=== PATIENT | female | born 1975 | race Hispanic/Latino ===

== ENCOUNTER → 2017-06-30 | Outpatient (CLI) | payer OTHER | END | disposition home or self-care (01) | LOC: RAH 08:49 | PROVIDERS: ATTEND Nurse Practitioner Adult Health | DX: Z12.31 Encounter for screening mammogram for malignant neoplasm of breast (principal); E04.1 Nontoxic single thyroid nodule | CPT/HCPCS: 76536; 77067 ==

== ENCOUNTER → 2021-08-11 | Outpatient (CLI) | payer OTHER ==
[2021-08-11 11:17] LABS: BASOPHILS % (AUTO) 0.7 % (0.0-5.0); EOSINOPHILS % (AUTO) 1.2 % (0.0-8.0); HEMATOCRIT 41.4 % (36-48); LYMPHOCYTES % (AUTO) 19.6 % (21.0-51.0); MEAN CORPUSCULAR HEMOGLOBIN 25.8 pg (27.0-33.0); MEAN CORPUSCULAR HGB CONC 31.4 g/dL (32.0-36.0); MEAN CORPUSCULAR VOLUME 82.3 fL (79-99); MONOCYTES % (AUTO) 7.8 % (3.0-13.0); NEUTROPHILS % (AUTO) 70.4 % (40.0-77.0); PLATELET COUNT (AUTO) 232 K/uL (130-400); RED BLOOD CELL COUNT(AUTO) 5.03 MIL/uL (4.00-5.50); RED CELL DISTRIBUTION WIDTH 14.1 % (11.0-15.5); WHITE BLOOD COUNT (AUTO) 6.8 K/uL (4.8-10.8)
[2021-08-11 11:34] LABS: HEMOGLOBIN A1C 5.8 % (4.0-6.0)
[2021-08-11 11:42] LABS: ALBUMIN 3.9 g/dL (3.5-5.0); BILIRUBIN,TOTAL 0.4 mg/dL (0.2-1.0); CREATININE 0.7 mg/dL (0.5-1.5); POTASSIUM 4.1 mmol/L (3.5-5.1); THYROID STIMULATING HORMONE 1.06 uIU/mL (0.36-3.74); TOTAL PROTEIN, SERUM 8.3 g/dL (6.0-8.3)
== END | disposition home or self-care (01) ==
LOC: RAH 10:25
PROVIDERS: ATTEND Nurse Practitioner Adult Health
DX: Z12.31 Encounter for screening mammogram for malignant neoplasm of breast (principal); Z00.00 Encounter for general adult medical examination without abnormal findings; E04.1 Nontoxic single thyroid nodule
CPT/HCPCS: 36415; 76536; 77067; 80053; 80061; 82306; 83036; 84443; 85025

== ENCOUNTER → 2021-08-11 | Outpatient (CLI) | payer OTHER | END | disposition home or self-care (01) | LOC: OIH 11:56 | PROVIDERS: ATTEND Nurse Practitioner Adult Health | DX: Z13.6 Encounter for screening for cardiovascular disorders (principal) | CPT/HCPCS: 75571 ==

== ENCOUNTER → 2023-05-02 | Outpatient (CLI) | payer OTHER ==
[2023-05-02 08:20] LABS: BASOPHILS # (AUTO) 0.03 K/uL (0.00-0.20); BASOPHILS % (AUTO) 0.5 % (0.0-5.0); EOSINOPHILS # (AUTO) 0.42 K/uL (0.00-0.70); EOSINOPHILS % (AUTO) 7.5 % (0.0-8.0); HEMATOCRIT 42.7 % (36-48); IMMATURE GRANULOCYTE ABSOLUTE 0.01 K/uL (0-1); LYMPHOCYTES # (AUTO) 1.3 K/uL (1.0-4.8); LYMPHOCYTES % (AUTO) 22.2 % (21.0-51.0); MEAN CORPUSCULAR HEMOGLOBIN 25.3 pg (27.0-33.0); MEAN CORPUSCULAR HGB CONC 30.9 g/dL (32.0-36.0); MEAN CORPUSCULAR VOLUME 81.8 fL (79-99); MONOCYTES # (AUTO) 0.7 K/uL (0.1-1.0); MONOCYTES % (AUTO) 12.3 % (3.0-13.0); NEUTROPHILS # (AUTO) 3.2 K/uL (1.8-7.7); NEUTROPHILS % (AUTO) 57.3 % (40.0-77.0); PLATELET COUNT (AUTO) 220 K/uL (130-400); RED BLOOD CELL COUNT(AUTO) 5.22 MIL/uL (4.00-5.50); RED CELL DISTRIBUTION WIDTH 14.6 % (11.0-15.5); WHITE BLOOD COUNT (AUTO) 5.6 K/uL (4.8-10.8)
[2023-05-02 08:28] LABS: HEMOGLOBIN A1C 5.7 % (4.0-6.0)
[2023-05-02 08:43] LABS: ALBUMIN 3.6 g/dL (3.5-5.0); BILIRUBIN,TOTAL 0.3 mg/dL (0.2-1.0); CREATININE 0.8 mg/dL (0.5-1.5); POTASSIUM 4.6 mmol/L (3.5-5.1); THYROID STIMULATING HORMONE 1.64 uIU/mL (0.36-3.74); TOTAL PROTEIN, SERUM 8.3 g/dL (6.0-8.3)
== END | disposition home or self-care (01) ==
LOC: LAB 07:56
PROVIDERS: ATTEND Nurse Practitioner Adult Health
DX: Z00.00 Encounter for general adult medical examination without abnormal findings (principal); R05.9 Cough, unspecified; R53.83 Other fatigue; E78.2 Mixed hyperlipidemia; E03.8 Other specified hypothyroidism; E55.9 Vitamin D deficiency, unspecified; E11.65 Type 2 diabetes mellitus with hyperglycemia
CPT/HCPCS: 36415; 71046; 80053; 80061; 82306; 83036; 84443; 85025

== ENCOUNTER → 2023-07-11 | Outpatient (CLI) | payer OTHER ==
[2023-07-11 08:17] LABS: BASOPHILS # (AUTO) 0.02 K/uL (0.00-0.20); BASOPHILS % (AUTO) 0.5 % (0.0-5.0); EOSINOPHILS # (AUTO) 0.15 K/uL (0.00-0.70); EOSINOPHILS % (AUTO) 3.8 % (0.0-8.0); HEMATOCRIT 38.3 % (36-48); IMMATURE GRANULOCYTE ABSOLUTE 0.02 K/uL (0-1); LYMPHOCYTES % (AUTO) 25.1 % (21.0-51.0); MEAN CORPUSCULAR HEMOGLOBIN 25.8 pg (27.0-33.0); MEAN CORPUSCULAR HGB CONC 31.6 g/dL (32.0-36.0); MEAN CORPUSCULAR VOLUME 81.7 fL (79-99); MONOCYTES # (AUTO) 0.4 K/uL (0.1-1.0); MONOCYTES % (AUTO) 9.7 % (3.0-13.0); NEUTROPHILS # (AUTO) 2.4 K/uL (1.8-7.7); NEUTROPHILS % (AUTO) 60.4 % (40.0-77.0); PLATELET COUNT (AUTO) 236 K/uL (130-400); RED BLOOD CELL COUNT(AUTO) 4.69 MIL/uL (4.00-5.50); RED CELL DISTRIBUTION WIDTH 15.1 % (11.0-15.5); WHITE BLOOD COUNT (AUTO) 3.9 K/uL (4.8-10.8)
[2023-07-11 08:26] LABS: HEMOGLOBIN A1C 5.7 % (4.0-6.0)
[2023-07-11 08:41] LABS: ALBUMIN 3.3 g/dL (3.5-5.0); BILIRUBIN,TOTAL 0.3 mg/dL (0.2-1.0); CREATININE 0.7 mg/dL (0.5-1.5); THYROID STIMULATING HORMONE 1.55 uIU/mL (0.36-3.74); TOTAL PROTEIN, SERUM 7.4 g/dL (6.0-8.3)
== END | disposition home or self-care (01) ==
LOC: LAB 07:31
PROVIDERS: ATTEND Nurse Practitioner Adult Health
DX: Z00.00 Encounter for general adult medical examination without abnormal findings (principal); R53.83 Other fatigue; E78.2 Mixed hyperlipidemia; E03.8 Other specified hypothyroidism; M06.9 Rheumatoid arthritis, unspecified; E55.9 Vitamin D deficiency, unspecified; E11.65 Type 2 diabetes mellitus with hyperglycemia
CPT/HCPCS: 36415; 80053; 80061; 82306; 82550; 83036; 84443; 85025; 86038; 86140; 86215; 86235; 86431

== ENCOUNTER → 2023-07-14 | Outpatient (CLI) | payer OTHER | END | disposition home or self-care (01) | LOC: RAH 08:34 | PROVIDERS: ATTEND Nurse Practitioner Adult Health | DX: Z12.31 Encounter for screening mammogram for malignant neoplasm of breast (principal) | CPT/HCPCS: 77067 ==

== ENCOUNTER → 2023-08-02 | Outpatient (CLI) | payer OTHER | END | disposition home or self-care (01) | LOC: SHCH 08:15 | PROVIDERS: ATTEND Internal Medicine Cardiovascular Disease | DX: I87.2 Venous insufficiency (chronic) (peripheral) (principal); I87.1 Compression of vein | CPT/HCPCS: 93970 ==

== ENCOUNTER 2023-08-08 09:09 | Day surgery (SDC) | payer OTHER ==
[~2023-08-08] VITALS: Ht 154.9 cm; Wt 80.7 kg
[2023-08-08] VITALS (11 sets, daily range): BP systolic 98–135; BP diastolic 57–80; PULSE 58–68; RESP 13–20
[~2023-08-08 09:09] MED LIST: CHOL12509 PO; ESCI-8 PO
[2023-08-08] MEDS: 0.9%NACL 1000ML 1,000 ML IV ONE (10:45)
[2023-08-08] MEDS ORDERED: PROPOFOL 10 MG/ML 20ML VIAL IV ONE (11:21)
[2023-08-08] MEDS ORDERED: LIDOCAINE HCL 1% 20 ML VIAL ONE (11:22)
== END 2023-08-08 12:50 | disposition home or self-care (01) ==
LOC: DAH 09:09
PROVIDERS: ATTEND Internal Medicine Gastroenterology
DX: Z12.11 Encounter for screening for malignant neoplasm of colon (principal); K57.30 Diverticulosis of large intestine without perforation or abscess without bleeding; F32.A Depression, unspecified; K21.9 Gastro-esophageal reflux disease without esophagitis; Z80.8 Family history of malignant neoplasm of other organs or systems; Z88.0 Allergy status to penicillin; Z88.8 Allergy status to other drugs, medicaments and biological substances
CPT/HCPCS: 81025; 45378; J7030 ×2; J2704; A4620; A4215; A4223; A7002; A4222; A4221; A4663; A4216; A4606; J3490

== ENCOUNTER → 2023-08-22 | Outpatient (CLI) | payer OTHER | END | disposition home or self-care (01) | LOC: LAB 09:34 | PROVIDERS: ATTEND Hospitalist | DX: Z11.52 Encounter for screening for COVID-19 (principal); U07.1 COVID-19 | CPT/HCPCS: 87426 ==

== ENCOUNTER → 2023-09-05 | Outpatient (CLI) | payer OTHER | END | disposition home or self-care (01) | LOC: RAH 12:10 | PROVIDERS: ATTEND Internal Medicine Cardiovascular Disease | DX: R06.2 Wheezing (principal); R06.09 Other forms of dyspnea | CPT/HCPCS: 93306 ==

== ENCOUNTER → 2024-02-21 | Outpatient (CLI) | payer OTHER ==
[2024-02-21 08:47] LABS: APPEARANCE,URINE CLEAR (CLEAR); BILIRUBIN,URINE NEGATIVE (NEGATIVE); COLOR,URINE YELLOW (YELLOW); GLUCOSE, URINE (UA) NEGATIVE (NEGATIVE); KETONES,URINE NEGATIVE (NEGATIVE); LEUKOCYTE ESTERASE ,URINE NEGATIVE Leu/uL (NEGATIVE); NITRATE,URINE NEGATIVE (NEGATIVE); OCCULT BLOOD,URINE NEGATIVE (NEGATIVE); PROTEIN,URINE 10 mg/dL (NEGATIVE)
[2024-02-21 08:58] LABS: ALBUMIN 3.4 g/dL (3.5-5.0); BILIRUBIN,TOTAL 0.4 mg/dL (0.2-1.0); CREATININE 0.7 mg/dL (0.5-1.0); POTASSIUM 3.4 mmol/L (3.5-5.1); TOTAL PROTEIN, SERUM 7.4 g/dL (6.0-8.3)
[2024-02-21 08:58] LABS: ADD UA MICROSCOPIC YES
[2024-02-21 09:01] LABS: BACTERIA,URINE RARE /HPF (None Seen); MUCUS,URINE FEW LPF (None Seen); SQUAMOUS EPITHELIAL CELL,UR MOD /HPF (0-2)
== END | disposition home or self-care (01) ==
LOC: LAB 07:56
PROVIDERS: ATTEND Internal Medicine Cardiovascular Disease
DX: R07.9 Chest pain, unspecified (principal); R60.9 Edema, unspecified
CPT/HCPCS: 36415; 80053; 80061; 81001; 87086

== ENCOUNTER → 2024-07-11 | Outpatient (CLI) | payer OTHER ==
--- NOTE | 2024-07-12 06:58 | HMCSR ---
APPROVED REPORT TEST INDICATIONS Dyspnea The imaging protocol used to acquire images was TREADMILL EXERCISE STRESS TEST Consent: The procedure was explained and understood by the patient. Informerd consent was witnessed Quintin Orona [facility] RESTING DATA: The resting ekg shows: NSR STRESS DETAILS Reason for Termination: Reached target heart rate Stress Symptoms: No chest pain or symptoms Max HR Achieved: 169 bpm % of APMHR Achieved: 98 Max Blood Pressure: 179/95 mmHg Exercise duration: 9 min Highest Stage Achieved: Stage 3: 3.4 mph at 14% grade. Stress ECG: Tachycardia, NSR Conclusion Please see handwritten summary report: Negative exercise treadmill test for ischemia Excellent exercise capacity Mason treadmill score of 9
== END | disposition home or self-care (01) ==
LOC: RAH 07:05
PROVIDERS: ATTEND Internal Medicine Cardiovascular Disease
DX: R06.02 Shortness of breath (principal); R06.00 Dyspnea, unspecified
CPT/HCPCS: 93017

== ENCOUNTER 2024-08-12 05:46 | Observation (INO) | payer OTHER ==
--- NOTE | 2024-08-09 08:17 | EKG ---
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
[2024-08-09 08:29] LABS: BASOPHILS # (AUTO) 0.03 K/uL (0.00-0.20); BASOPHILS % (AUTO) 0.6 % (0.0-5.0); EOSINOPHILS # (AUTO) 0.17 K/uL (0.00-0.70); EOSINOPHILS % (AUTO) 3.3 % (0.0-8.0); HEMATOCRIT 37.4 % (36-48); IMMATURE GRANULOCYTE ABSOLUTE 0.01 K/uL (0-1); LYMPHOCYTES # (AUTO) 1.1 K/uL (1.0-4.8); MEAN CORPUSCULAR HEMOGLOBIN 24.6 pg (27.0-33.0); MEAN CORPUSCULAR HGB CONC 30.7 g/dL (32.0-36.0); MEAN CORPUSCULAR VOLUME 80.1 fL (79-99); MONOCYTES # (AUTO) 0.5 K/uL (0.1-1.0); MONOCYTES % (AUTO) 9.3 % (3.0-13.0); NEUTROPHILS # (AUTO) 3.4 K/uL (1.8-7.7); NEUTROPHILS % (AUTO) 65.6 % (40.0-77.0); PLATELET COUNT (AUTO) 257 K/uL (130-400); RED BLOOD CELL COUNT(AUTO) 4.67 MIL/uL (4.00-5.50); RED CELL DISTRIBUTION WIDTH 14.9 % (11.0-15.5); WHITE BLOOD COUNT (AUTO) 5.2 K/uL (4.8-10.8)
[2024-08-09 08:36] LABS: CREATININE 0.7 mg/dL (0.5-1.0); POTASSIUM 4.5 mmol/L (3.5-5.1)
[2024-08-09 08:37] LABS: INR 0.98 (0.85-1.15)
[2024-08-09 08:39] LABS: PARTIAL THROMBOPLASTIN TIME 27.3 SEC (26.3-35.5)
[2024-08-09 08:46] LABS: B-TYPE NATRIURETIC PEPTIDE 6 pg/mL (0-100)
[2024-08-09 08:52] VITALS: BP 112/74; PULSE 69; RESP 18; TEMP 97.9
[~2024-08-12] VITALS: Ht 154.9 cm; Wt 78.1 kg
[2024-08-12] VITALS (35 sets, daily range): BP systolic 74–128; BP diastolic 36–78; PULSE 70–110; RESP 15–19; TEMP 97.5–98.5; O2SAT 92–97
[~2024-08-12 05:46] MED LIST changes: -CHOL12509 PO
[2024-08-12] MEDS: 0.9%NACL 1000ML 1,000 ML IV SCH ×2 (06:26→11:34)
[2024-08-12] MEDS ORDERED: HEParin-NS 1,000 UNIT/500 ML 1,000 ML IV ONE (07:08)
[2024-08-12] MEDS ORDERED: HEParin 10,000 UNIT/10ML (1,000 UNIT/ML) VIAL ONE (07:08)
[2024-08-12] MEDS ORDERED: IODIXANOL 320 MG/ML 100 ML VIAL ONE (07:08)
[2024-08-12] MEDS ORDERED: LIDOCAINE HCL 400MG/20ML VIAL ONE ×2 (07:08→07:46)
[2024-08-12] MEDS ORDERED: NITROGLYCERIN 50MG VIAL ONE (07:09)
[2024-08-12] MEDS ORDERED: DiphenhydrAMINE HCL 50 MG/ML VIAL ONE (08:09)
[2024-08-12] MEDS ORDERED: Solu-medROL 125MG VIAL ONE (08:10)
[2024-08-12] MEDS ORDERED: EPINEPHrine PF 1MG (1:1,000) 1 MG/ML AMP ONE (08:13)
[2024-08-12] MEDS ORDERED: FAMOTIDINE 20MG VIAL IV ONE (08:15)
[2024-08-12] MEDS ORDERED: MIDAZOLAM HCL 1 MG/ML 2ML VIAL ONE (08:16)
[2024-08-12] MEDS ORDERED: ondanSETRON 4MG INJ ONE (08:17)
[2024-08-12] MEDS ORDERED: HEParin-NS 1,000 UNIT/500 ML 500 ML IV ONE (08:20)
[2024-08-12] MEDS ORDERED: monteLUKAST sodIUM 10 MG TAB ONE (08:24)
[2024-08-12] MEDS ORDERED: phenylEPHRINE HCL 10 MG/ML 1ML VIAL IV ONE (08:33)
[2024-08-12] MEDS ORDERED: ASPIRIN 81MG CHEW TAB ONE (08:49)
[2024-08-12] MEDS ORDERED: cloPIDOgrel 300MG TAB ONE (08:49)
[2024-08-12] MEDS ORDERED: metoPROLOL tartRATE 1 MG/ML 5ML VIAL IV PRN (09:00)
[2024-08-12] MEDS ORDERED: DEXTROSE 50%-WATER 50 ML DISP.SYRIN IV PRN (09:00)
[2024-08-12] MEDS ORDERED: acetaMINOPHEN WITH coDEINE 1 TAB TAB PO PRN ×2 (09:00)
[2024-08-12] MEDS ORDERED: GLUCAGON 1MG KIT 1 MG ML IM PRN (09:00)
--- NOTE | 2024-08-12 09:05 | PRN ---
Procedure Note INDICATION FOR PROCEDURE: [] May-Thurner syndrome PROCEDURE: [] Bilateral common femoral venous sheath placement nine Swedish Bilateral common femoral venograms Intravascular ultrasound of IVC, bilateral common iliac external iliac common femoral veins pre and post stent placement Angioplasty and stent placement to left common iliac and external iliac vein with placement of a 16 mm x 120 mm Medtronic venous self expanding stent Primary stent placement to distal right common iliac and external iliac vein with the use of a 14 mm x 100 mm Medtronic venous self expanding stent DATE OF PROCEDURE: August 12, 2024 BATTERY MECHANIC: Rowdy Reid MD [facility] PROCEDURE NOTE: [] Patient was electively brought to catheterization suite and prepped and draped in sterile fashion. An IV was started if not already in place and both groins were exposed for venous access. 2% lidocaine was used for local anesthesia on the left common femoral vein and wants refill on motor seen modified Seldinger technique was utilized to place a nine Swedish sheath in the left common femoral vein. Next a venogram was performed. Next intravascular ultrasound was done for interrogation of the IVC, left common iliac external iliac and common femoral vein. Next an Omni flush catheter was then used to cross over the Glidewire to the right but we kept on getting in branch vessels and I decided to then gain access on the right common femoral vein and after adequate lidocaine was administered access was obtained with a micropuncture kit and then a nine Swedish sheath was placed into the right common femoral vein. Next simultaneous venograms were performed and used as a roadmap. Next intravascular ultrasound interrogation was done of the IVC right common iliac external iliac and common femoral vein. Findings are as described below. After measurements were obtained it was felt angioplasty and stent placement should be done to the left and stent placement should be done to the right. At this time is when patient started to have what appeared to be a reaction to the contrast (iodine) and appropriate protocol for iodine reaction was undertaken and we did call anesthesiology for assistance with airway in case any further compromise took place. Patient was given Solu-Medrol Benadryl and Dilaudid epinephrine total of 1 mg as well as IV fluids and patient responded nicely. We are able to continue on with intervention and next a 16 mm x 6 cm balloon was then used to pre dilate the left common iliac and external iliac vein with multiple inflations at five atmospheres for 60 seconds 5 mm for for 45 seconds and then five atmospheres for 30 seconds. Next a 16 mm x 120 mm Medtronic venous self expanding stent was then placed in the left common iliac external vein and deployed. Follow up IVUS revealed excellent stent apposition with no need for post stent dilatation. Next a 14 mm x 100 mm Medtronic venous self expanding stent was then placed into the distal portion of the right common iliac vein extending the entirety of the right external iliac vein and deployed. Follow-up ultrasound revealed no evidence of dissection with good stent apposition. FINDINGS: [] Left common iliac vein at 77% compression Left external iliac vein at 54% compression Right common iliac vein at 58% compression Right external iliac vein at 65% compression IMPRESSION: [] Successful stent placement to left common iliac and external iliac vein with the use of a 16 mm x 120 mm Medtronic venous self expanding stent Successful stent placement to right common iliac and external iliac vein with the use of a 14 mm x 100 mm Medtronic venous self expanding stent PLAN: [] Monitor patient in outpatient surgery for 8 hours monitoring blood pressures and breathing Administer IV fluids Possible discharge later this afternoon No heavy lifting 5 lb or greater for three days No driving for 24 hours ROWDY REID MD Aug 12, 2024 09:05
[2024-08-12] MEDS ORDERED: ALBUMIN HUMAN 25% 100 ML IV SCH (09:30)
[2024-08-12] MEDS: IpraTROPium/alBUTERol SULFATE 3 ML SOLUTION IH ONE ×3 (09:30→10:21)
[2024-08-12] MEDS: ALBUMIN (HUMAN) 5% 250 ML IV ONE (09:31)
[2024-08-12] MEDS: ePHEDrine SULFate 50 MG/ML AMPULE ONE (09:43)
--- NOTE | 2024-08-12 10:30 | NUR ---
DR VERN MARTINES WITH PATIENT IN PACU N.O. TO ADMIT TO MED/SURG W TELE AND TRAMADOL 50MG Q6H PRN FOR PAIN. PATIENT VERBALIZED UNDERSTANDING; NO ISSUES NOTED AT THIS TIME.
--- NOTE | 2024-08-12 10:40 | HMCIMG ---
CHEST 1VW HISTORY: Status post venogram COMPARISON: 05/02/2023 FINDINGS: A frontal projection of the chest was obtained. Bilateral pulmonary infiltrates are seen with left more than right. The heart is borderline enlarged. Degenerative changes are seen. No evidence of aortic calcification is seen. IMPRESSION: 1. Bilateral pulmonary infiltrates with left more than right.
[2024-08-12] MEDS ORDERED: traMADol HCL 50 MG TABLET PO PRN (11:00)
--- NOTE | 2024-08-12 11:02 | NUR ---
arrived from pacu blood pressure systolic 90s, nasal cannula 5L oxygen saturation at 90-92%, alert and oriented x 4, family at bedside.
--- NOTE | 2024-08-12 11:05 | NUR ---
contacted RT for incentive spirometer
[2024-08-12] MEDS: monteLUKAST sodIUM 10 MG TAB PO ONE (11:10)
[2024-08-12] MEDS ORDERED: IpraTROPium/alBUTERol SULFATE 3 ML SOLUTION IH SCH (12:00)
[2024-08-12] MEDS: IpraTROPium/alBUTERol SULFATE 3 ML SOLUTION IH SCH (18:27)
[2024-08-13] VITALS: BP 99/57; PULSE 87; RESP 17; TEMP 98.6
[2024-08-13 04:00] VITALS: BP 91/57; PULSE 73; RESP 17; TEMP 98.1
[2024-08-13 06:57] VITALS: PULSE 66; RESP 18; O2SAT 94
[2024-08-13 06:58] VITALS: PULSE 66; RESP 18
[2024-08-13 07:58] VITALS: BP 92/58; PULSE 77; RESP 18; TEMP 97.9
--- NOTE | 2024-08-13 08:37 | PN ---
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 Blood pressures remained stable when she was moved up to the floor and telemetry did reveal infrequent episodes of sinus tachycardia. She denies any other complaints or problems. REVIEW OF SYSTEMS: No fever, headache, chest pain, abdominal pain, nausea, vomiting, or diarrhea. VITAL SIGNS Vital Signs Date Time Temp Pulse Resp B/P (MAP) Pulse Ox O2 Delivery O2 Flow Rate FiO2 08/13/24 07:58 97.9 77 18 92/58 100 Room Air 08/13/24 04:00 2.0 08/12/24 20:00 28 LABS/MEDS Current Medications Sodium Chloride 1,000 ml @ 0 mls/hr Q0M IV Last administered on 08/12/24at 06:26; Start 08/12/24 at 06:30; Stop 09/11/24 at 06:29 Lidocaine HCl 20 ml STK-MED ONCE .ROUTE; Start 08/12/24 at 07:08; Stop 08/12/24 at 07:10; Status DC Iodixanol 100 ml STK-MED ONCE .ROUTE; Start 08/12/24 at 07:08; Stop 08/12/24 at 07:10; Status DC Heparin Sodium (Porcine) 10,000 unit STK-MED ONCE .ROUTE; Start 08/12/24 at 07:08; Stop 08/12/24 at 07:10; Status DC Heparin Sodium/ Sodium Chloride 1,000 ml @ As Directed STK-MED ONCE IV; Start 08/12/24 at 07:08; Stop 08/12/24 at 07:10; Status DC Nitroglycerin 50 mg STK-MED ONCE .ROUTE; Start 08/12/24 at 07:09; Stop 08/12/24 at 07:10; Status DC Lidocaine HCl 20 ml STK-MED ONCE .ROUTE; Start 08/12/24 at 07:46; Stop 08/12/24 at 07:46; Status DC Diphenhydramine HCl 50 mg STK-MED ONCE .ROUTE; Start 08/12/24 at 08:09; Stop 08/12/24 at 08:09; Status DC Methylprednisolone Sodium Succinate 125 mg STK-MED ONCE .ROUTE; Start 08/12/24 at 08:10; Stop 08/12/24 at 08:10; Status DC Epinephrine HCl 1 mg STK-MED ONCE .ROUTE; Start 08/12/24 at 08:13; Stop 08/12/24 at 08:14; Status DC Montelukast Sodium 10 mg ONCE ONCE PO; Start 08/12/24 at 08:30; Stop 08/12/24 at 08:31; Status DC Famotidine 20 mg STK-MED ONCE IV; Start 08/12/24 at 08:15; Stop 08/12/24 at 08:16; Status DC Midazolam HCl 2 mg STK-MED ONCE .ROUTE; Start 08/12/24 at 08:16; Stop 08/12/24 at 08:16; Status DC Ondansetron HCl 4 mg STK-MED ONCE .ROUTE; Start 08/12/24 at 08:17; Stop 08/12/24 at 08:18; Status DC Heparin Sodium/ Sodium Chloride 500 ml @ As Directed STK-MED ONCE IV; Start 08/12/24 at 08:20; Stop 08/12/24 at 08:20; Status DC Montelukast Sodium 10 mg STK-MED ONCE .ROUTE; Start 08/12/24 at 08:24; Stop 08/12/24 at 08:24; Status DC Phenylephrine HCl 10 mg STK-MED ONCE IV; Start 08/12/24 at 08:33; Stop 08/12/24 at 08:33; Status DC Clopidogrel Bisulfate 300 mg STK-MED ONCE .ROUTE; Start 08/12/24 at 08:49; Stop 08/12/24 at 08:49; Status DC Aspirin 81 mg STK-MED ONCE .ROUTE; Start 08/12/24 at 08:49; Stop 08/12/24 at 08:49; Status DC Acetaminophen/ Codeine Phosphate 1 tab Q4H PRN PO; Start 08/12/24 at 09:00; Stop 09/11/24 at 08:59 Acetaminophen/ Codeine Phosphate 2 tab Q4H PRN PO; Start 08/12/24 at 09:00; Stop 08/12/24 at 10:33; Status DC Sodium Chloride 1,000 ml @ 100 mls/hr Q10H IV; Start 08/12/24 at 09:00; Stop 08/12/24 at 14:59; Status DC Metoprolol Tartrate 5 mg Q5M PRN IV; Start 08/12/24 at 09:00 Dextrose 50 ml AD PRN IV; Start 08/12/24 at 09:00; Stop 09/11/24 at 08:59 Glucagon 1 mg AD PRN IM; Start 08/12/24 at 09:00; Stop 09/11/24 at 08:59 Albuterol 1 udvial ONCE ONCE IH Last administered on 08/12/24at 09:30; Start 08/12/24 at 09:30; Stop 08/12/24 at 09:31; Status DC Albumin Human 100 ml @ 0 mls/hr AD IV; Start 08/12/24 at 09:30; Stop 08/14/24 at 09:29 Albuterol 1 udvial STK-MED ONCE IH; Start 08/12/24 at 09:21; Stop 08/12/24 at 09:26; Status DC Albumin Human 250 ml @ As Directed STK-MED ONCE IV Last administered on 08/12/24at 09:31; Start 08/12/24 at 09:24; Stop 08/12/24 at 09:26; Status DC Ephedrine Sulfate 50 mg STK-MED ONCE .ROUTE Last administered on 08/12/24at 09:43; Start 08/12/24 at 09:38; Stop 08/12/24 at 09:38; Status DC Albuterol 1 udvial ONCE ONCE IH Last administered on 08/12/24at 10:21; Start 08/12/24 at 10:30; Stop 08/12/24 at 10:31; Status DC Tramadol HCl 50 mg Q6H PRN PO; Start 08/12/24 at 11:00; Stop 08/17/24 at 10:59 Albuterol 1 udvial [id number] IH; Start 08/12/24 at 12:00; Stop 08/12/24 at 11:33; Status DC Albuterol 1 udvial [id number] IH Last administered on 08/13/24at 06:52; Start 08/12/24 at 18:00; Stop 09/11/24 at 17:59 PHYSICAL EXAMINATION: GENERAL: No acute distress. HEENT: Normocephalic, atraumatic. CARDIAC: Positive S1 and S2. No murmurs. LUNGS: Clear to auscultation bilaterally. ABDOMEN: Bowel sounds present, soft, nontender. EXTREMITIES: No edema bilaterally. NEUROLOGIC: Cranial nerves 2-12 grossly intact. PSYCHIATRIC: Calm. TELEMETRY: Sinus rhythm Sinus tachycardia ASSESSMENT: Critical symptomatic bilateral May-Thurner syndrome Successful angioplasty and stent placement to bilateral common iliac and external iliac veins Anaphylactoid reaction to iodine PLAN: Overall patient has recovered nicely. Groins have remained stable. Telemetry has been unremarkable. She can be discharged home today. The necessity of dual antiplatelet therapy was explained to the patient and she demonstrated understanding. A prescription for Ultram was given. VERN SOTELO MD Aug 13, 2024 08:37
[2024-08-13 09:04] VITALS: O2SAT 100
--- NOTE | 2024-08-13 09:33 | NUR ---
discharged gave patient printed discharge paperwork, educated patient regarding diet, activity, medications, follow up visits, signs and symptoms to report/return to ER for, answered pt questions, patient and family understood.
== END 2024-08-13 09:45 | disposition home or self-care (01) ==
LOC: DAH 05:46 → DAHIP 05:47 → DAH 05:47 → 4AH 11:00
PROVIDERS: ADMIT Internal Medicine Cardiovascular Disease; ATTEND Internal Medicine Cardiovascular Disease
DX: I87.2 Venous insufficiency (chronic) (peripheral) (principal); I87.1 Compression of vein; I95.9 Hypotension, unspecified; Z98.890 Other specified postprocedural states; Z79.899 Other long term (current) drug therapy; Z88.0 Allergy status to penicillin; Z91.040 Latex allergy status; Z88.2 Allergy status to sulfonamides
CPT/HCPCS: 80048; 83880; 85025; 85610; 85730; 36415; 93005; 37238; 37239; 36012; 75822; 37252; 37253 ×5; 71045; 94664; 94640; C1876 ×2; C1725; C1769; C1894 ×3; C1760 ×2; C1753; G0378 ×23; P9045; J1200; J3490 ×4; J7030; J2919; J0171; J1644 ×3; J2250; J2405; J2371; Q9967; A4215; A4223 ×3; A4222; A4221; A4663; A4216; A4606; 99156; 99157

== ENCOUNTER → 2024-10-15 | Outpatient (CLI) | payer OTHER ==
[2024-10-15 11:14] LABS: HEMATOCRIT 37.6 % (36-48); MEAN CORPUSCULAR HEMOGLOBIN 23.4 pg (27.0-33.0); MEAN CORPUSCULAR HGB CONC 29.8 g/dL (32.0-36.0); MEAN CORPUSCULAR VOLUME 78.7 fL (79-99); PLATELET COUNT (AUTO) 246 K/uL (130-400); RED BLOOD CELL COUNT(AUTO) 4.78 MIL/uL (4.00-5.50); RED CELL DISTRIBUTION WIDTH 14.9 % (11.0-15.5); WHITE BLOOD COUNT (AUTO) 4.1 K/uL (4.8-10.8)
[2024-10-15 11:34] LABS: HEMOGLOBIN A1C 5.7 % (4.0-6.0)
[2024-10-15 11:36] LABS: ALBUMIN 3.6 g/dL (3.5-5.0); BILIRUBIN,TOTAL 0.3 mg/dL (0.2-1.0); CREATININE 0.8 mg/dL (0.5-1.0); POTASSIUM 4.5 mmol/L (3.5-5.1); THYROID STIMULATING HORMONE 0.98 uIU/mL (0.36-3.74)
[2024-10-15 12:31] LABS: ERYTHROCYTE SEDIMENTATION RATE 15 MM/HR (0-20)
== END | disposition home or self-care (01) ==
LOC: LAB 10:17
PROVIDERS: ATTEND Nurse Practitioner Adult Health
DX: M60.9 Myositis, unspecified (principal); M25.50 Pain in unspecified joint
CPT/HCPCS: 36415; 80053; 80061; 82306; 82550; 83036; 84443; 85027; 85651; 86140; 86160

== ENCOUNTER → 2024-10-28 | Outpatient (CLI) | payer OTHER ==
--- NOTE | 2024-10-28 14:57 | HMCSR ---
APPROVED REPORT Bilateral Lower Extremity Venous Study for DVT., Venous Competence. Indications i87.1, i87.2 Vein Imaging CFV (R): Normal flow, augmentation and compression. No evidence of DVT. 10.7mm 628ms of DVR. SFJ (R): Normal flow, augmentation and compression. No evidence of DVT. FEM (R): Normal flow, augmentation and compression. No evidence of DVT. POP (R): Normal flow, augmentation and compression. No evidence of DVT. DFV (R): Normal flow, augmentation and compression. No evidence of DVT. PTV (R): Normal flow, augmentation and compression. No evidence of DVT. Peroneals (R): Normal flow, augmentation and compression. No evidence of DVT. CFV (L): Normal flow, augmentation and compression. No evidence of DVT. 11.4mm 989ms of DVR. SFJ (L): Normal flow, augmentation and compression. No evidence of DVT. FEM (L): Normal flow, augmentation and compression. No evidence of DVT. POP (L): Normal flow, augmentation and compression. No evidence of DVT. DFV (L): Normal flow, augmentation and compression. No evidence of DVT. PTV (L): Normal flow, augmentation and compression. No evidence of DVT. Peroneals (L): Normal flow, augmentation and compression. No evidence of DVT. Technologist Impression Deep veins of the bilateral lower extremities appear patent and compressible without thrombus. No significant Deep vein reflux seen. Superficial venous insufficiency seen in the RGSV at junction only. RGSV junction 5.9mm 761ms thigh 3.2mm 161ms knee 3.2mm 0.0ms calf 2.6mm 0.0ms RSSV prox 1.9mm 0.0ms mid 1.9mm 0.0ms LGSV junction 6.1mm 0.0ms thigh 3.0mm 0.0ms knee 2.2mm 0.0ms calf 2.0mm 0.0ms LSSV prox 1.7mm 0.0ms mid 2.4mm 0.0ms Conclusion Superficial venous reflux noted of right greater saphenous vein greater than 500 milliseconds No DVT Conclusion Superficial venous reflux noted of right greater saphenous vein greater than 500 milliseconds No DVT
== END | disposition home or self-care (01) ==
LOC: SHCH 09:43
PROVIDERS: ATTEND Internal Medicine Cardiovascular Disease
DX: I87.2 Venous insufficiency (chronic) (peripheral) (principal); I87.1 Compression of vein
CPT/HCPCS: 93970